=== PATIENT | female | born 1970 | race African-American/Black ===

== ENCOUNTER 2021-11-09 07:18 | Day surgery (SDC) | payer SELFPAY ==
[2021-10-30 15:54] VITALS: BMI 27.5
[2021-11-09] MEDS ORDERED: BUPIVACAINE HCL 200 ML ONE (07:54)
[2021-11-09] MEDS ORDERED: LIDOCAINE HCL 1%, 10 MG/ML (20ML VIAL) ONE (07:54)
[2021-11-09] MEDS ORDERED: BUPIVACAINE LIPOSOME/PF (EXPAREL) 266 MG/20 ML VIAL ONE (07:56)
[2021-11-09] MEDS ORDERED: PROPOFOL 20 ML ONE ×5 (08:34→11:11)
[2021-11-09] MEDS ORDERED: MIDAZOLAM HCL 2 MG/2 ML SINGLE DOSE VIAL ONE (08:35)
[2021-11-09] MEDS ORDERED: SUCCINYLCHOLINE CHLORIDE 200 MG/10 ML SYRINGE ONE (08:35)
[2021-11-09] MEDS ORDERED: ALBUTEROL SO4 HFA INHALER IH PRN (08:59)
[2021-11-09] MEDS ORDERED: ceFAZolin SODIUM 1 GM VIAL ONE ×3 (09:20→21:25)
[2021-11-09] MEDS ORDERED: DEXAMETHASONE SOD PHOSPHATE 4 MG/1 ML VIAL ONE (09:25)
[2021-11-09] MEDS ORDERED: ONDANSETRON 4 MG/2 ML VIAL ONE (09:25)
[2021-11-09] MEDS ORDERED: HYDROmorphone HCL/PF 1 MG/ML VIAL ONE (09:54)
[2021-11-09] MEDS ORDERED: ROCURONIUM BROMIDE 50 MG/5 ML SYRINGE ONE (10:02)
[2021-11-09] MEDS ORDERED: GUM MASTIC/STORAX/MSAL/ALCOHOL 1 DRP DROPSBTL MC ONE ×2 (10:34→10:36)
[2021-11-09] MEDS ORDERED: ONDANSETRON 4 MG/2 ML VIAL IVPUSH PRN ×2 (11:49→11:55)
[2021-11-09] MEDS ORDERED: diazePAM 5 MG TABLET PO PRN (11:54)
[2021-11-09] MEDS ORDERED: PROMETHAZINE HCL 25 MG/1 ML VIAL IVPUSH PRN (11:55)
[2021-11-09] MEDS ORDERED: LACTATED RINGERS SOLUTION 1,000 ML IV SCH (12:00)
[2021-11-09] MEDS ORDERED: DEXTROSE 5%-WATER - 50 ML IVPB ONE ×2 (15:07→21:25)
[2021-11-09] MEDS: CEFAZOLIN 1 GM in DEXTROSE 5%-WATER - 50 ML IVPB SCH ×2 (15:10→21:51)
[2021-11-09] MEDS: oxyCODONE HCL 5 MG TABLET PO PRN ×2 (18:30→19:25)
[2021-11-10] MEDS ORDERED: DEXTROSE 5%-WATER - 50 ML IVPB ONE ×2 (00:57→08:21)
[2021-11-10] MEDS ORDERED: ceFAZolin SODIUM 1 GM VIAL ONE ×2 (00:57→08:21)
[2021-11-10] MEDS: oxyCODONE HCL 5 MG TABLET PO PRN ×2 (01:09→08:32)
[2021-11-10] MEDS: ACETAMINOPHEN 325 MG TABLET (FP) PO PRN ×2 (01:10→08:33)
[2021-11-10] MEDS: CEFAZOLIN 1 GM in DEXTROSE 5%-WATER - 50 ML IVPB SCH ×2 (03:08→08:32)
[2021-11-10] MEDS ORDERED: ENOXAPARIN NA (PORCINE) 40 MG/0.4 ML DISP.SYRIN SQ SCH (06:00)
[2021-11-10 08:48] VITALS: BP 129/68; PULSE 81; TEMP 98.5
== END 2021-11-10 13:33 | disposition home or self-care (01) ==
LOC: FASUSAT 07:18 → FM/S 13:32 → FASUSAT 11-10 13:33
PROVIDERS: ATTEND Surgery Plastic and Reconstructive Surgery
PROC: 0J080ZZ Alteration of Abdomen Subcutaneous Tissue and Fascia, Open Approach (ICD-10-PCS; principal; 2021-11-09 09:41)
PROC: 0J083ZZ Alteration of Abdomen Subcutaneous Tissue and Fascia, Percutaneous Approach (ICD-10-PCS; 2021-11-09 09:41)
DX: E88.1 Lipodystrophy, not elsewhere classified (principal); M62.08 Separation of muscle (nontraumatic), other site
CPT/HCPCS: 84703; 94760